=== PATIENT | male | born 1980 | race Caucasian/White ===

== ENCOUNTER 2021-10-20 13:28 | Emergency (ER) | payer OTHER, SELFPAY ==
[2021-10-20 13:40] VITALS: BP 125/79; PULSE 78; RESP 18; TEMP 36.4; O2SAT 98
--- NOTE | 2021-10-20 13:47 | ED.URI ---
HPI - URI/Sore Throat General Chief Complaint: Upper Respiratory Infection Stated Complaint: sorethroat Time Seen by Provider: 10/20/21 13:40 Source: patient and RN notes reviewed Mode of arrival: ambulatory Limitations: no limitations History of Present Illness HPI Narrative: 41-year-old male presented for complaint of sore throat for 3 days. He states his pain is worse at night, resolves by noon usually. However today the pain did not subside. He has not taken anything for pain or for symptoms. He denies sinus pressure, congestion, ear pain, nausea, fevers or chills. Denies sick contacts. He has not boosted for COVID, not vaccinated for the flu. MD elicited complaint: sore throat Related Data Home Medications Medication Instructions Recorded Confirmed No Home Medications 10/20/21 10/20/21 Allergies Allergy/AdvReac Type Severity Reaction Status Date / Time No Known Allergies Allergy Verified 10/20/21 13:46 Review of Systems Review of Systems: CONSTITUTIONAL: denies malaise, chills, sweats, fever EYES: Denies visual changes, redness, or discharge ENT: Denies rhinorrhea, congestion, sinus pain, otalgia CARDIOVASCULAR: Denies chest pain, palpitations, edema RESPIRATORY: Denies cough, dyspnea GASTROINTESTINAL: Denies abdominal pain, nausea, vomiting, diarrhea SKIN: Denies rash or itching MUSCULOSKELETAL: denies myalgia NEUROLOGIC: Denies headache PMFSH Social History Social History Smoking status: Never smoker Alcohol intake: current Exam Narrative: GENERAL: well-appearing HEAD: Normocephalic EYES: conjunctivae clear ENT: Mucous membranes moist. TM pearly henao with normal light reflex bilaterally; no tragal tenderness. Oropharynx erythematous without lesions or exudate, tonsils absent; no drooling, no hoarseness, no trismus, uvula midline. No tripod positioning, muffled voice, soft palate or pharyngeal wall bulging NECK: Supple. No lymphadenopathy CHEST: Clear to auscultation, breath sounds equal. No respiratory distress, speaks in full sentences. HEART: Regular rate and rhythm. No murmur heard. SKIN: Warm, dry, no rash. NEURO: Alert and oriented x3. PSYCH: Normal mood and affect Course Course Emergency Course: Patient is aware of diagnosis, understands and agrees to treatment plan. Anticipatory guidance given. Patient agrees to follow-up as directed and is aware of reasons to seek care at the emergency department. Portions of this record may have been created with voice recognition software Level of Care: Express Care Visit Vital Signs Vital signs: Vital Signs Temperature 97.6 F 10/20/21 13:40 Pulse Rate 78 10/20/21 13:40 Respiratory Rate 18 10/20/21 13:40 Blood Pressure 125/79 10/20/21 13:40 Pulse Oximetry 98 10/20/21 13:40 Temperature 97.6 F 10/20/21 13:40 Pulse Rate 78 10/20/21 13:40 Respiratory Rate 18 10/20/21 13:40 Blood Pressure 125/79 10/20/21 13:40 Pulse Oximetry 98 10/20/21 13:40 reviewed MDM - URI/Sore Throat MDM Narrative Medical decision making narrative: strep negative Differential Diagnosis Differential diagnosis: Likely upper respiratory infection, sinusitis, viral infection and pharyngitis Lab Data Attestation: I reviewed the patient's lab results. Discharge Plan Discharge Clinical Impression: Pharyngitis Qualifiers: Pharyngitis/tonsillitis etiology: unspecified etiology Qualified Code(s): J02.9 - Acute pharyngitis, unspecified Patient Disposition: Home, Self-Care Condition: Stable Instructions: Antibiotic Form, Allergic Rhinitis (ED) Additional Instructions: Rapid strep swab was negative today You will be notified in a few days if the culture comes back positive for strep, and appropriate antibiotics will be called in at that time. if symptoms are due to a viral illness, it is not treated with antibiotics. Viral symptoms can be present for up to 10-14 days.
== END 2021-10-20 13:57 | disposition home or self-care (01) ==
PROVIDERS: Emergency Provider Nurse Practitioner Family; PCP Internal Medicine
DX: J02.9 Acute pharyngitis, unspecified (principal)
CPT/HCPCS: 87081; 87880; 99213; G0463